=== PATIENT | female | born 1965 | race Caucasian/White ===

== ENCOUNTER 2017-07-12 08:38 | Inpatient (IN) | payer OTHER ==
[2017-07-04 10:12] VITALS: BMI 26.0
--- NOTE | 2017-07-04 10:50 | PAT Medication Instructions ---
Service Date Jul 04, 2017. Current Home Medication List Albuterol Hfa (Ventolin Hfa), 2-4 PUFFS INH Q6H PRN for Cough Ascorbic Acid (Vitamin C), 1 TAB PO QPM Aspirin (Aspirin Ec), 81 MG PO QAM Biotin (Biotin), 1 TAB PO QAM Cholecalciferol (Vitamin D3), 1 TAB PO QAM Cyanocobalamin (Vitamin B-12), 100 MCG PO QAM Ferrous Sulfate (Iron), 1 TAB PO QPM Fexofenadine Hcl (Elisa Allergy), 1 TAB PO QAM Fluticasone Propionate (Nasal) (Flonase Allergy Relief), 2 SPRAYS NA QAM Vitamin E (Topical) (Vitamin E), 1 TAB PO QPM Medication Instructions For Your Scheduled Surgery - Hold the following medications 7-10 days prior to surgery: Aspirin (Aspirin Ec), 81 MG PO QAM Vitamin E (Vitamin E), 1 TAB PO QPM - Hold the following medications the morning of surgery: Biotin (Biotin), 1 TAB PO QAM Cholecalciferol (Vitamin D3), 1 TAB PO QAM Cyanocobalamin (Vitamin B-12), 100 MCG PO QAM Fexofenadine Hcl (Elisa Allergy), 1 TAB PO QAM - Take the following medications the morning of surgery with a sip of water: Albuterol Hfa (Ventolin Hfa), 2-4 PUFFS INH Q6H PRN for Cough (if needed) Fluticasone Propionate (Nasal) (Flonase Allergy Relief), 2 SPRAYS NA QAM - Take the following medications as scheduled the night before surgery: Albuterol Hfa (Ventolin Hfa), 2-4 PUFFS INH Q6H PRN for Cough (if needed) Ascorbic Acid (Vitamin C), 1 TAB PO QPM Ferrous Sulfate (Iron), 1 TAB PO QPM If you have any questions please call us at [phone] or [phone] or [phone]
[2017-07-12] VITALS (8 sets, daily range): BP systolic 105–140; BP diastolic 66–87; PULSE 65–83; TEMP 36.1–37.5; O2SAT 98–100; Ht 162.6 cm; Wt 68.6 kg
[~2017-07-12] VITALS: Ht 162.6 cm; Wt 68.6 kg
[~2017-07-12 08:38] MED LIST: ASCO1CAP3 PO; ASPI81TA28 PO; BIOT1CAP3 PO; CEFAZOLIN 2000MG IV PUSH 15 ML IV SCH; CHOL1000 PO; CYAN100T PO; FERR1TAB23 PO; FEXO1TAB49 PO; FLUT0.15; LACTATED RINGER'S 1000ML 1,000 ML IV SCH; VITA1CRE PO; VNTHFA/IN INH
[2017-07-12] MEDS ORDERED: METR1TAB4 PO (09:18)
[2017-07-12] MEDS ORDERED: PROPOFOL IV EMULSION 10 MG/ML 20 ML VIAL ONE ×4 (09:42→14:12)
[2017-07-12] MEDS ORDERED: ROCURONIUM BROMIDE 10 MG/ML 5 ML VIAL ONE (09:42)
[2017-07-12] MEDS ORDERED: ONDANSETRON INJ 2 MG/ML 2 ML VIAL ONE (09:42)
[2017-07-12] MEDS ORDERED: FENTANYL CITRATE INJ 50 MCG/1 ML 2 ML VIAL ONE ×3 (09:42→13:33)
[2017-07-12] MEDS ORDERED: LIDOCAINE HCL 2% 2 ML VIAL (20MG/ML) ONE (09:42)
[2017-07-12] MEDS ORDERED: MIDAZOLAM HCL 1 MG/ML 2ML VIAL ONE (09:42)
--- NOTE | 2017-07-12 09:54 | History & Physical Bridge Note ---
H&P Re-Evaluation Bridge Note: I have examined the patient, reviewed the History & Physical and in the interval since the performance of the History & Physical I have noted the following changes of clinical significance: No changes noted
[2017-07-12] MEDS ORDERED: DEXAMETHASONE SOD INJ 4 MG/ML VIAL ONE (10:11)
[2017-07-12] MEDS ORDERED: BUPIVACAINE/EPINEPHRINE 0.5% MPF 1:200,000 30 ML VIAL ONE (10:11)
[2017-07-12] MEDS ORDERED: ATROPINE SULFATE 0.1 MG/ML 5ML SYR IV PRN (10:30)
[2017-07-12] MEDS ORDERED: ONDANSETRON INJ 2 MG/ML 2 ML VIAL IV PRN ×2 (10:30→14:15)
[2017-07-12] MEDS ORDERED: PROMETHAZINE HCL INJ 6.25 MG in SODIUM CHLORIDE 0.9% 50ML 50 ML IV PRN (10:30)
[2017-07-12] MEDS ORDERED: EpHEDrine SULFATE INJ 50 MG/ML AMP IV PRN (10:30)
[2017-07-12] MEDS ORDERED: BUPIVACAINE 0.5 % 5 MG/1 ML PF 10ML VIAL ONE (10:45)
[2017-07-12] MEDS ORDERED: PHENYLEPHRINE HCL INJ 10 MG/ML VIAL ONE (11:51)
[2017-07-12] MEDS ORDERED: METHYLENE BLUE 0.5% 10 ML VIAL ONE (13:37)
--- NOTE | 2017-07-12 14:12 | [facility] Post Operative Brief Note ---
Immediate Operative Summary Operative Date July 12, 2017. Pre-Operative Diagnosis Enlarged Uterus with Multiple Fibroids Post-Operative Diagnosis Enlarged Uterus with Multiple Fibroids Procedure(s) Performed Exam under anesthesia, Total Abdominal Hysterectomy, Bilateral Salpingectomy, Cystoscopy Surgeon Dr. Anguiano Yoga Teacher Surgeon(s) Dr. Tian Estimated Blood Loss 100ml Findings Consistent with Post-Op Diagnosis Fluids (cc crystalloids) 2200 ml LR Specimens Permanent Solution: A.) Uterus B.) Right Fallopian Tube C.) Left Fallopian Tube D.) Cervix Drains NAJERA 100 ML Anesthesia Type MAC Spinal Regional Complication(s) none Disposition Disposition: Recovery Room / PACU
[2017-07-12] MEDS ORDERED: OXYCODONE/ACETAMINOPHEN 5-325 TAB PO PRN (14:15)
[2017-07-12] MEDS ORDERED: PROMETHAZINE HCL INJ 25 MG in SODIUM CHLORIDE 0.9% 50ML 50 ML IV PRN (14:15)
[2017-07-12] MEDS ORDERED: MEPERIDINE HCL 50 MG/ML CARP IV PRN ×3 (14:15→20:00)
[2017-07-12] MEDS ORDERED: SENNA 8.6 MG TAB PO PRN (14:15)
[2017-07-12] MEDS ORDERED: BISACODYL 10 MG SUPP PR PRN (14:15)
[2017-07-12] MEDS ORDERED: ACETAMINOPHEN IV 100 ML IV PRN (14:15)
[2017-07-12] MEDS ORDERED: MAGNESIUM HYDROXIDE SUSP 30 ML UDC PO PRN (14:15)
[2017-07-12] MEDS: FENTANYL CITRATE INJ 50 MCG/1 ML 2 ML VIAL IV PRN ×2 (14:32→14:38)
[2017-07-12] MEDS ORDERED: D5W AND LACTATED RINGERS 1,000 ML IV SCH (15:45)
--- NOTE | 2017-07-12 16:22 | Anesthesiology Progress Note ---
Anesthesia Post Op Note Date & Time July 12, 2017 at 16:22 Vital Signs Pain Intensity: 4 Vital Signs Past 12 Hours Date Time Temp Pulse Resp B/P (MAP) Pulse Ox O2 Delivery O2 Flow Rate FiO2 07/12/17 15:50 36.1 65 16 112/68 (83) 100 Room Air 07/12/17 15:20 36.9 67 16 111/69 (83) 99 Room Air 07/12/17 15:10 59 15 131/76 100 Nasal Cannula 2 07/12/17 15:00 36.3 56 16 137/80 100 Nasal Cannula 2 07/12/17 14:50 64 14 126/84 96 Nasal Cannula 2 07/12/17 14:40 52 10 141/81 100 Oxymask 10 07/12/17 14:30 57 16 132/76 100 Oxymask 10 07/12/17 14:22 36.1 67 15 117/68 100 Oxymask 10 07/12/17 09:19 37.1 74 18 140/87 98 Room Air Notes Mental Status: alert / awake / arousable, participated in evaluation Pt Amnestic to Procedure: Yes Nausea / Vomiting: adequately controlled Pain: adequately controlled Airway Patency, RR, SpO2: stable & adequate BP & HR: stable & adequate Hydration State: stable & adequate Neuraxial Anesthesia: was administered, sensory block is resolving Anesthetic Complications: no major complications apparent
[2017-07-12] MEDS: KETOROLAC TROMETHAMINE 30 MG/ML VIAL IV. PRN (16:31)
--- NOTE | 2017-07-12 19:56 | OB/GYN Progress Note ---
DRIER TENDER Progress Note Date of Service: July 12, 2017. Postop check Patient is seen and examined Feels well, no complaints other than incision pain She was given IV Toradol and Tylenol and declined Demerol due to fear of side effects Those did not help much No CP/ SOB/ Dizziness/ N&V/ VB/ Leg pain Not OOB yet but has been sitting up and it is helping for her pain. Tolerating clears Explained about the surgery and findings Shown her pictures from [employer] Date Time Temp Pulse Resp B/P (MAP) Pulse Ox O2 Delivery O2 Flow Rate FiO2 07/12/17 18:20 37.4 71 18 135/84 (101) 99 Room Air 07/12/17 17:20 37.1 70 18 105/69 (81) 100 Room Air 07/12/17 16:20 36.9 65 18 120/66 (84) 100 Room Air 07/12/17 15:50 36.1 65 16 112/68 (83) 100 Room Air 07/12/17 15:20 Room Air 07/12/17 15:20 36.9 67 16 111/69 (83) 99 Room Air 07/12/17 15:10 59 15 131/76 100 Nasal Cannula 2 07/12/17 15:00 36.3 56 16 137/80 100 Nasal Cannula 2 07/12/17 14:50 64 14 126/84 96 Nasal Cannula 2 07/12/17 14:40 52 10 141/81 100 Oxymask 10 07/12/17 14:30 57 16 132/76 100 Oxymask 10 07/12/17 14:22 36.1 67 15 117/68 100 Oxymask 10 07/12/17 09:19 37.1 74 18 140/87 98 Room Air 8-Hour Column 07/12/17 07/13/17 07/13/17 16:00 00:00 08:00 Intake Total 2300 ml Output Total 400 ml Balance 1900 ml 24-Hour Column 07/13/17 08:00 Intake Total 2300 ml Output Total 400 ml Balance 1900 ml PE: General: Alert, orientedx3, NAD CVS: S1S2 RRR Lungs: CTAB Abd: soft, NT, ND, BS+, Dressing C/D/I No VB Ext: NT, no edema, SCD's on AP: 52 yo female s/p TAHM Bilateral salpingectomy, Cystoscopy , pod#0 VSS Afebrile doing well Discussed low dose of IV and IM Demerol to avoid side effects and she accepted Continue to monitor closely D/C roberts in am
[2017-07-12 19:59] LABS: HEMATOCRIT 38.1 % (37-47); HEMOGLOBIN 13.4 g/dL (12.0-16.0)
[2017-07-12] MEDS ORDERED: MEPERIDINE HCL 25 MG/ML CARP IM PRN (20:00)
[2017-07-12] MEDS: ALBUTEROL HFA 8 GM INHALER INH PRN (21:05)
--- NOTE | 2017-07-12 22:26 | OPERATIVE REPORT ---
DATE OF OPERATION: 07/12/2017 PREOPERATIVE DIAGNOSES: Patient is a 52-year-old, G1, P1-0-0-1 perimenopausal female with enlarged fibroid uterus, heavy menstrual periods, pelvic pain, and desire for hysterectomy. POSTOPERATIVE DIAGNOSIS: Same. PROCEDURE: Exam under anesthesia, total abdominal hysterectomy, bilateral salpingectomy, cystoscopy. SURGEON: Izaiah Ring MD EDUCATION PROGRAM COORDINATOR: Antwon Tian MD ESTIMATED BLOOD LOSS: 100 ml. FLUIDS: 2200 mL of lactated ringer. DRAINS: Moreno drained 100 mL of clear urine. ANESTHESIA: Spinal and sedation. COMPLICATIONS: None. SPECIMENS: Uterus with cervix, bilateral fallopian tubes. FINDINGS: Exam under anesthesia revealed anteverted 20-week size of uterus, nonpalpable adnexa. Intraoperative findings, globally enlarged uterus, 20-week size. Lrge fundal intramural fibroid, about 12x10 cm size. Normal fallopian tubes and ovaries. Normal peritoneum, bowels, appendix and omentum. DESCRIPTION OF PROCEDURE: The patient was taken to the operating room where spinal anesthesia was given without difficulty. She was placed in dorsal supine position and prepared and draped in usual sterile fashion. A midline vertical incision was made with a scalpel 2 cm below the umbilicus until the pubic bone and then incision was continued with the tip of Bovie until the fascia. Fascia was incised in the midline and incision was extended superiorly and inferiorly with the tip of Bovie while elevating the fascia with the tip of Ely. The rectus muscles were identified, in the midline. Peritoneum was entered. Peritoneum was identified and grasped with 2 pickups and entered sharply with Metzenbaum scissors. Peritoneal incision was extended superiorly and inferiorly with good visualization of the bladder and then retractors were placed. Uterus was exteriorized from the incision. There was a large fibroid on the fundus. It was about 12 x 10 cm occupying most of the uterus. Uterus was globally enlarged about 20-week size. Bilateral fallopian tubes and ovaries appeared to be normal and the peritoneal surfaces, bowel surfaces, appendix, and bladder were normal. An Ivet- ruby Cooney-Silverio retractor was placed in the patient's abdominal wall and the bowels were packed away from the field. The right round ligament was grasped with 2 Franklyn clamps, incised with Steven scissors, suture ligated with 0 Vicryl on both sides and the anterior leaf of the broad ligament was incised bilaterally and the bladder flap was created and the bladder was dissected off from the lower uterine segment and cervix. Then the posterior leaf of broad ligament was also incised on both sides. Utero-ovarian ligament on both sides were held with Ely clamps, incised with Steven scissors, and suture ligated with 0 Vicryl twice on both sides. The ovary with the fallopian tubes were dropped into the pelvic sidewalls and the pedicles on the uterus were suture ligated to prevent bleeding. Then uterine arteries were skeletonized on both sides. They were held with Franklyn clamps and straight Ely clamps and then cut and suture ligated x2 on both sides. Excellent hemostasis was achieved. With the Franklyn clamps, we continued down into the lower branch of the uterine arteries and the cardinal ligaments. The cervix was held with straight clamps and the cardinal ligaments were cut and suture ligated with 0 Vicryl on both sides. The uterus was bulky preventing the visualization of the cervical vaginal junction. Decision was made to amputate isthmus of the uterus from the cervix. It was incised circumferentially with the tip of Bovie. Uterus with the fibroid was removed from the surgical field and then the remaining cervical stump was held with Terry clamps and then we continued with the cardinal ligaments on both sides, held with Franklyn clamps, cut and suture ligated with 0 Vicryl on both sides. Excellent hemostasis was achieved. Then the sacrouterine ligaments were held and suture ligated with 0 Vicryl and then they were tagged with hemostat and then the vagina was punctured with the tip of the hemostat. The vagina was cut circumferentially around the cervix and the cervix was removed from the field and sent to pathology. Vaginal cuff was held with Terry clamps and the vaginal cuff was closed with 0 Vicryl in a running fashion. The corner sutures were placed with 0 Vicryl on both sides and then the middle of the cuff was repaired with 0 Vicryl in a running locked fashion. Excellent hemostasis was achieved. The right fallopian tube was identified, grasped with 2 [place] clamps and the mesosalpinx was coagulated and cut with the handheld LigaSure device, from the ovary, and sent to pathology and the same thing was done on the left side. The left fallopian tube was identified, grasped with [place] clamps. The mesosalpinx was coagulated and cut with the handheld LigaSure device. Left tube was also excised and sent to pathology and the rest of the ovary and pedicle and the surgical field were hemostatic. The peritoneum was reapproximated with 3-0 Vicryl in a running fashion covering the pedicles and cuff and the sutures on the sacrouterine ligaments were tied in the middle to provide suspension of the vaginal cuff. Excellent hemostasis was achieved. Decision was made to proceed with cystoscopy and the patient was given IV methylene blue and then all the instruments and sponges were removed from the patient's abdomen. The parietal peritoneum was identified, reapproximated with 3-0 Vicryl in a running fashion and then rectus fascia was held with Terry clamps, reapproximated with #1 Vicryl in a running fashion and the skin was closed with woody. The incision was covered with sterile dressing. Attention was turned to the patient's perineum. The patient was placed in the frogleg position and cystoscopy was done and the bladder was visualized to be intact and ureters were visualized to be ejecting urine on both sides. Pictures were taken and cystoscopy was ended. Patient was placed with a new sterile Moreno catheter and patient was cleaned and dried. She tolerated procedure well. Sponge, lap, needle count was correct x3. She was given 2 grams of cefazolin before surgery. She was taken to recovery room in stable condition. No complications happened. I was and Dr. Tian was present during whole procedure. I attest to the content of the Intraoperative Record and any orders documented therein. Any exceptions are noted below. JIM
[2017-07-13] MEDS: KETOROLAC TROMETHAMINE 30 MG/ML VIAL IV. PRN (02:46)
[2017-07-13] MEDS: ALBUTEROL HFA 8 GM INHALER INH PRN ×4 (02:51→23:57)
[2017-07-13 03:00] VITALS: BP 140/77; PULSE 82; TEMP 37.1; O2SAT 95
[2017-07-13 07:30] LABS: BASO % 0.1 %; BASO ABS # 0.01 K/uL (0-0.2); EOS % 0.6 %; EOS ABS # 0.05 K/uL (0-0.5); HEMOGLOBIN 12.8 g/dL (12.0-16.0); IG# 0.01 K/uL (0.00-0.02); LYMPH % 17.6 %; LYMPH ABS # 1.53 K/uL (1.2-3.4); MEAN CELL VOLUME 88.3 fL (80-100); MEAN CORPUSCULAR HEMOGLOBIN 30.5 pg (25-34); MEAN CORPUSCULAR HGB CONC 34.6 g/dl (32-36); MEAN PLATELET VOLUME 9.5 fL (7.4-10.4); MONO % 8.9 %; MONO ABS # 0.77 K/uL (0.11-0.59); NEUT % 72.7 %; NEUT ABS # 6.33 K/uL (1.4-6.5); PLATELET COUNT 218 K/uL (130-400); RED CELL DISTRIBUTION WIDTH CV 12.8 % (11.5-14.5); RED CELL DISTRIBUTION WIDTH SD 41.4 fL (36.4-46.3)
[2017-07-13 08:03] LABS: CREATININE 0.67 mg/dl (0.60-1.20); POTASSIUM 4.1 mmol/L (3.5-5.1)
[2017-07-13 08:20] VITALS: BP 134/82; PULSE 76; TEMP 37.1; O2SAT 96
--- NOTE | 2017-07-13 08:32 | Discharge Instructions ---
Discharge Instructions Date of Service July 13, 2017. Admission Reason for Admission: Enlarged Uterus With Multiple Fibroids Discharge Discharge Diagnosis / Problem: ARMANDO, Bilateral salpingectomy, cystoscopy Discharge Goals Goal(s): Decrease discomfort Activity Recommendations Activity Limitations: as noted below Lifting Limitations: no more than 10 pounds Exercise/Sports Limitations: until after follow-up appointment May Resume Sexual Activity: after follow-up appointment Shower/Bathe: keep incision dry Driving or Machine Use: ACTIVITY RECOMMENDATIONS: * Rest the first 2-3 days. Light activity at home is okay. * No heavy lifting for 6 weeks. * No intercourse, tampons or douching for 6 weeks. * You may shower the next day. No bath. * Do not drive anytime that you are taking narcotic pain medicines or have pain. RETURN TO SCHOOL/WORK: * May return to school or work after 4-6 days. DIET: Nausea may occur in the immediate post-operative period. If so, take clear liquids such as tea, bouillon, apple juice until all nausea has subsided, then resume usual diet. MEDICATIONS: Resume previous medications unless instructed otherwise by your surgeon. Ibuprofen 200mg 2-3 tablets every 4-6 hours as needed -- OR -- Aleve 2 tablets every 8-12 hours as needed for post-operative discomfort Tylenol may be used if you like to avoid Percocet or not preferred. Medication should be taken with food or milk. Do not take on an empty stomach. SPECIAL CARE INSTRUCTIONS: * Check temperature twice daily for one week. report any elevation over 101 degrees. * You may experience some vagina spotting and/or bleeding. This is normal for 1 -2 weeks and should not be heavier than a normal period. If it is unusual in amount, call your physician. FOLLOW UP VISIT: Call your doctor's office for a post-operative 10day visit for woody removal if not already scheduled. . Current Hospital Diet Patient's current hospital diet: Clear Liquid Diet Discharge Diet Recommended Diet: Regular Diet Procedures Procedures Performed: Exam under anesthesia, Total Abdominal Hysterectomy, Bilateral Salpingectomy, Cystoscopy Pending Studies Studies pending at discharge: yes List of pending studies: Pathology Medical Emergencies . Who to Call and When: Medical Emergencies: If at any time you feel your situation is an emergency, please call 911 immediately. . Non-Emergent Contact Non-Emergency issues call your: Surgeon Call Non-Emergent contact if: temperature is above 100.5, temperature is above 101, your pain is not controlled, your pain is worsening, your pain is unusual for you, wound has increased drainage, wound has increased redness, wound has increased pain, you have any medication questions . "Provider Documentation" section prepared by Izaiah Ring. .
[2017-07-13] MEDS ORDERED: MOMLX PO (08:43)
[2017-07-13] MEDS ORDERED: OXYC-57 PO (08:43)
--- NOTE | 2017-07-13 09:12 | OB/GYN Progress Note ---
CUSTOMER MANAGEMENT SPECIALIST Progress Note Date of Service: July 13, 2017. Patient is seen and examined. She feels well, no complaints. Pain is under control . Ambulating without dizziness Voiding without difficulty Tolerating clear diet with out N&V Flatus neg Bleeding is minimal No fever/ chills/ CP/ SOB/ N&V/ Leg pain Date Time Temp Pulse Resp B/P (MAP) Pulse Ox O2 Delivery O2 Flow Rate FiO2 07/13/17 03:00 37.1 82 18 140/77 (98) 95 Room Air 07/12/17 23:40 37.5 83 20 139/75 (96) 98 Room Air 07/12/17 23:40 98 Room Air 07/12/17 19:30 37.2 80 20 138/82 (100) 98 Room Air 07/12/17 19:30 98 Room Air 07/12/17 18:20 37.4 71 18 135/84 (101) 99 Room Air 07/12/17 17:20 37.1 70 18 105/69 (81) 100 Room Air 07/12/17 16:20 36.9 65 18 120/66 (84) 100 Room Air 07/12/17 15:50 36.1 65 16 112/68 (83) 100 Room Air 07/12/17 15:20 Room Air 07/12/17 15:20 36.9 67 16 111/69 (83) 99 Room Air 07/12/17 15:10 59 15 131/76 100 Nasal Cannula 2 07/12/17 15:00 36.3 56 16 137/80 100 Nasal Cannula 2 07/12/17 14:50 64 14 126/84 96 Nasal Cannula 2 07/12/17 14:40 52 10 141/81 100 Oxymask 10 07/12/17 14:30 57 16 132/76 100 Oxymask 10 07/12/17 14:22 36.1 67 15 117/68 100 Oxymask 10 07/12/17 09:19 37.1 74 18 140/87 98 Room Air Last 24 Hours Test 07/12/17 19:42 07/13/17 07:15 Hemoglobin 13.4 g/dL 12.8 g/dL Hematocrit 38.1 % 37.0 % White Blood Count 8.70 K/uL Red Blood Count 4.19 M/uL Mean Corpuscular Volume 88.3 fL Mean Corpuscular Hemoglobin 30.5 pg Mean Corpuscular Hemoglobin Concent 34.6 g/dl Platelet Count 218 K/uL Mean Platelet Volume 9.5 fL Neutrophils (%) (Auto) 72.7 % Lymphocytes (%) (Auto) 17.6 % Monocytes (%) (Auto) 8.9 % Eosinophils (%) (Auto) 0.6 % Basophils (%) (Auto) 0.1 % Neutrophils # (Auto) 6.33 K/uL Lymphocytes # (Auto) 1.53 K/uL Monocytes # (Auto) 0.77 K/uL Eosinophils # (Auto) 0.05 K/uL Basophils # (Auto) 0.01 K/uL RDW Standard Deviation 41.4 fL RDW Coefficient of Variation 12.8 % Immature Granulocyte % (Auto) 0.1 % Immature Granulocyte # (Auto) 0.01 K/uL Sodium Level 140 mmol/L Potassium Level 4.1 mmol/L Chloride Level 108 mmol/L Carbon Dioxide Level 27 mmol/L Anion Gap 5.0 mmol/L Blood Urea Nitrogen 7 mg/dl Creatinine 0.67 mg/dl Est Creatinine Clear Calc Drug Dose 92.4 ml/min Estimated GFR () 116.3 Estimated GFR (Non- 100.4 BUN/Creatinine Ratio 11.1 Random Glucose 96 mg/dl Calcium Level 8.0 mg/dl PE: General: Alert, orientedx3, NAD CVS: S1S2 RRR Lungs; CTAB Abd: soft, NT, ND, BS+ Dressing: Clean, dry, intact Ext; NT, no edema AP: 52 yo s/p ARMANDO, BL Salpingectomy, Cysto, pod# 1 VSS Afebrile doing well Continue routine postop care Encourage ambulation, PO intake All questions were answered D/C home in am
[2017-07-13] MEDS: IBUPROFEN 600 MG TAB PO PRN ×4 (10:27→23:58)
[2017-07-13 11:50] VITALS: BP 136/84; PULSE 78; TEMP 37.2; O2SAT 98
[2017-07-13 15:40] VITALS: BP 138/87; PULSE 76; TEMP 37.1; O2SAT 99
[2017-07-13 23:40] VITALS: BP 134/82; PULSE 69; TEMP 37.1; O2SAT 97
[2017-07-14] MEDS: ALBUTEROL HFA 8 GM INHALER INH PRN ×2 (03:45→10:18)
[2017-07-14] MEDS: IBUPROFEN 600 MG TAB PO PRN ×2 (03:46→10:19)
[2017-07-14 07:02] LABS: BASO % 0.3 %; BASO ABS # 0.02 K/uL (0-0.2); EOS ABS # 0.24 K/uL (0-0.5); HEMATOCRIT 35.8 % (37-47); HEMOGLOBIN 12.6 g/dL (12.0-16.0); IG# 0.01 K/uL (0.00-0.02); LYMPH % 30.3 %; LYMPH ABS # 1.82 K/uL (1.2-3.4); MEAN CELL VOLUME 88.8 fL (80-100); MEAN CORPUSCULAR HEMOGLOBIN 31.3 pg (25-34); MEAN CORPUSCULAR HGB CONC 35.2 g/dl (32-36); MEAN PLATELET VOLUME 9.3 fL (7.4-10.4); MONO % 8.2 %; MONO ABS # 0.49 K/uL (0.11-0.59); NEUT ABS # 3.43 K/uL (1.4-6.5); PLATELET COUNT 189 K/uL (130-400); RED CELL DISTRIBUTION WIDTH CV 12.6 % (11.5-14.5); RED CELL DISTRIBUTION WIDTH SD 40.9 fL (36.4-46.3); WHITE BLOOD COUNT 6.01 K/uL (4.8-10.8)
--- NOTE | 2017-07-14 07:06 | Surgery Progress Note ---
Surgery Progress Note Date of Service July 14, 2017. Subjective Post OP Day: 2 + feeling well, + ambulating, + flatus, + pain controlled, + diet (Tolerating PO food and meds), No complaints, No chest pain, No SOB, No bowel movement, No nausea, No vomiting Objective Vital Signs: Date Time Temp Pulse Resp B/P (MAP) Pulse Ox O2 Delivery O2 Flow Rate FiO2 07/13/17 23:40 37.1 69 18 134/82 (99) 97 Room Air 07/13/17 23:40 97 Room Air 07/13/17 15:40 99 Room Air 07/13/17 15:40 37.1 76 18 138/87 (104) 99 Room Air 07/13/17 11:50 98 Room Air 07/13/17 11:50 37.2 78 18 136/84 (101) 98 Room Air 07/13/17 08:20 37.1 76 18 134/82 (99) 96 Room Air 07/13/17 08:20 96 Room Air General Appearance: WD/WN, no apparent distress Head: normocephalic, atraumatic Neck: supple, no adenopathy, thyroid normal, no JVD, no carotid bruits, trachea midline Respiratory/Chest: chest non-tender, lungs clear, normal breath sounds, no respiratory distress, no accessory muscle use Cardiovascular: regular rate, rhythm, no edema, no gallop, no JVD, no murmur Abdomen: normal bowel sounds, non tender, non distended, soft, no organomegaly , no pulsatile mass Incision(s): clean, dry, intact, no erythema, no drainage Extremities: normal range of motion, non-tender, normal inspection, no pedal edema, no calf tenderness, normal capillary refill, pelvis stable Laboratory Results: Results Past 24 Hours Test 07/13/17 07:15 07/14/17 06:43 Range/Units White Blood Count 8.70 6.01 4.8-10.8 K/uL Red Blood Count 4.19 4.03 4.2-5.4 M/uL Hemoglobin 12.8 12.6 12.0-16.0 g/dL Hematocrit 37.0 35.8 37-47 % Mean Corpuscular Volume 88.3 88.8 80-100 fL Mean Corpuscular Hemoglobin 30.5 31.3 25-34 pg Mean Corpuscular Hemoglobin Concent 34.6 35.2 32-36 g/dl Platelet Count 218 189 130-400 K/uL Mean Platelet Volume 9.5 9.3 7.4-10.4 fL Neutrophils (%) (Auto) 72.7 57.0 % Lymphocytes (%) (Auto) 17.6 30.3 % Monocytes (%) (Auto) 8.9 8.2 % Eosinophils (%) (Auto) 0.6 4.0 % Basophils (%) (Auto) 0.1 0.3 % Neutrophils # (Auto) 6.33 3.43 1.4-6.5 K/uL Lymphocytes # (Auto) 1.53 1.82 1.2-3.4 K/uL Monocytes # (Auto) 0.77 0.49 0.11-0.59 K/uL Eosinophils # (Auto) 0.05 0.24 0-0.5 K/uL Basophils # (Auto) 0.01 0.02 0-0.2 K/uL RDW Standard Deviation 41.4 40.9 36.4-46.3 fL RDW Coefficient of Variation 12.8 12.6 11.5-14.5 % Immature Granulocyte % (Auto) 0.1 0.2 % Immature Granulocyte # (Auto) 0.01 0.01 0.00-0.02 K/uL Sodium Level 140 136-145 mmol/L Potassium Level 4.1 3.5-5.1 mmol/L Chloride Level 108 98-107 mmol/L Carbon Dioxide Level 27 21-32 mmol/L Anion Gap 5.0 3-11 mmol/L Blood Urea Nitrogen 7 7-18 mg/dl Creatinine 0.67 0.60-1.20 mg/dl Est Creatinine Clear Calc Drug Dose 92.4 ml/min Estimated GFR () 116.3 Estimated GFR (Non- 100.4 BUN/Creatinine Ratio 11.1 10-20 Random Glucose 96 70-99 mg/dl Calcium Level 8.0 8.5-10.1 mg/dl Assessment & Plan ARMANDO Day #2 pt doing well d/c home with instructions
[2017-07-14 07:30] VITALS: BP 124/81; PULSE 65; TEMP 36.9
[2017-07-14 07:34] LABS: CALCIUM 8.2 mg/dl (8.5-10.1); CREATININE 0.66 mg/dl (0.60-1.20); POTASSIUM 3.8 mmol/L (3.5-5.1)
[2017-07-14 11:00] VITALS: BP 124/81; PULSE 65; TEMP 36.9; O2SAT 97
== END 2017-07-14 12:30 | disposition home or self-care (01) | DRG 743 ==
LOC: C.ACU 08:38 → C.MS4N 09:45 → OBSVTOIN 14:12
PROVIDERS: ADMIT Obstetrics & Gynecology; ATTEND Obstetrics & Gynecology
PROC: 0UT90ZZ Resection of Uterus, Open Approach (ICD-10-PCS; principal; 2017-07-12 10:30)
PROC: 0UTC0ZZ Resection of Cervix, Open Approach (ICD-10-PCS; principal; 2017-07-12 10:30)
PROC: 0UT70ZZ Resection of Bilateral Fallopian Tubes, Open Approach (ICD-10-PCS; principal; 2017-07-12 10:30)
DX: D25.1 Intramural leiomyoma of uterus (principal); N92.1 Excessive and frequent menstruation with irregular cycle; R10.2 Pelvic and perineal pain; J30.9 Allergic rhinitis, unspecified; Z79.899 Other long term (current) drug therapy; Z79.82 Long term (current) use of aspirin; Z87.891 Personal history of nicotine dependence; Z88.4 Allergy status to anesthetic agent; Z88.3 Allergy status to other anti-infective agents; Z91.048 Other nonmedicinal substance allergy status; Z82.0 Family history of epilepsy and other diseases of the nervous system; Z80.8 Family history of malignant neoplasm of other organs or systems; Z82.61 Family history of arthritis; Z82.3 Family history of stroke